=== PATIENT | female | born 1970 | race Caucasian/White ===

== ENCOUNTER 2018-01-07 11:43 | Day surgery (SDC) | payer OTHER ==
[2018-01-06 10:45] VITALS: BMI 30.1
[2018-01-07] MEDS ORDERED: PROPOFOL 20 ML ONE (13:29)
[2018-01-07 13:50] VITALS: TEMP 97.4
[2018-01-07 14:56] VITALS: BP 130/82; PULSE 78
--- NOTE | 2018-01-10 13:55 | PATH ---
Surgical Pathology Report Patient Name: PATRICIO BRYAN [facility]. Rec. #: [id number] /Age/Gender: 1970 (Age: 47) / F Account: [id number] Location: U-ENDOSCOPY Taken: 01/07/2018 Received: 01/07/2018 Reported: 01/10/2018 Physicians: Kristian Beckman M.D. Specimen(s) Received A: BX DUODENUM B: BX GASTRIC ANTRUM C: BIOPSY POLYPS FROM PROXIMAL TRANSVERSE COLON Clinical History Preoperative diagnosis: Screening, abdominal pain, occult blood Postoperative diagnosis: Hiatal hernia, atrophic gastritis, colon polyp Final Diagnosis A. DUODENUM, SECOND PORTION AND BULB, BIOPSY: DUODENAL MUCOSA WITH MILD NONSPECIFIC CHRONIC INFLAMMATION AND HYPERPLASIA OF MUCOSA ASSOCIATED LYMPHOID TISSUE. NO HISTOLOGIC EVIDENCE OF GLUTEN SENSITIVE ENTEROPATHY (CELIAC SPRUE) IDENTIFIED. B. STOMACH, ANTRUM, BIOPSY: MODERATE CHRONIC ACTIVE GASTRITIS. IMMUNOSTAIN FOR H. PYLORI IS POSITIVE (MANY ORGANISMS). C. COLON, PROXIMAL TRANSVERSE, BIOPSY: COLONIC MUCOSA WITH NO PATHOLOGIC CHANGES. NO ADENOMATOUS OR HYPERPLASTIC CHANGES IDENTIFIED. Electronically Signed Ilia Cook M.D. Gross Description A. Received in formalin, labeled "biopsy second portion of duodenum and bulb" are 4 nicholas, irregular portions of soft tissue ranging from 0.2-0.3 cm. in greatest dimension. The specimens are submitted in toto in one cassette. B. Received in formalin, labeled "biopsy gastric antrum" are 4 nicholas, irregular portions of soft tissue ranging from 0.2-0.3 cm. in greatest dimension. The specimens are submitted in toto in one cassette. C. Received in formalin, labeled "biopsy polyp proximal transverse" is a nicholas, irregular portion of soft tissue measuring 0.5 cm. in greatest dimension. The specimen is submitted in toto in one cassette. /01/07/2018 saudi01/07/2018
== END 2018-01-07 14:57 | disposition home or self-care (01) ==
LOC: JASU-ENDO 11:43
PROVIDERS: ATTEND Internal Medicine Gastroenterology
PROC: 0DB98ZX Excision of Duodenum, Via Natural or Artificial Opening Endoscopic, Diagnostic (ICD-10-PCS; 2018-01-07)
PROC: 0DB68ZX Excision of Stomach, Via Natural or Artificial Opening Endoscopic, Diagnostic (ICD-10-PCS; 2018-01-07)
PROC: 0DBL8ZX Excision of Transverse Colon, Via Natural or Artificial Opening Endoscopic, Diagnostic (ICD-10-PCS; principal; 2018-01-07 12:45)
DX: D12.3 Benign neoplasm of transverse colon (principal); K64.8 Other hemorrhoids; K44.9 Diaphragmatic hernia without obstruction or gangrene; K29.50 Unspecified chronic gastritis without bleeding; Z80.0 Family history of malignant neoplasm of digestive organs
CPT/HCPCS: 84703; 88305-TC; 88342-TC